=== PATIENT | female | born 1980 | race African-American/Black ===

== ENCOUNTER 2023-11-03 18:00 | Emergency (ER) | payer OTHER ==
[2023-11-03 18:08] VITALS: BP 132/75; PULSE 75; RESP 18; TEMP 98; BMI 38.5
[2023-11-03] MEDS ORDERED: ACETAMINOPHEN INJECTION 100 ML IVPB ONE (19:31)
[2023-11-03 20:37] LABS: BASO % 0.8 % (0-2.0); EOS % 4.5 % (0-4.5); HEMATOCRIT 30.4 % (32.4-45.2); LYMPH % 24.2 % (8-40); MCH 29.8 pg (25.7-33.7); MEAN CELL VOLUME 90.3 fl (80-96); MONO % 8.1 % (3.8-10.2); NEUT % 62.4 % (42.8-82.8); PLATELET COUNT 434 10^3/uL (134-434); RBC 3.36 M/mm3 (3.60-5.2); RDW 15.5 % (11.6-15.6); WHITE BLOOD COUNT 8.6 K/mm3 (4.0-10.0)
[2023-11-03] MEDS: ACETAMINOPHEN 1000 MG/100 ML BAG IVPB ONE (20:49)
[2023-11-03 20:57] LABS: POTASSIUM 3.8 mmol/L (3.5-5.1)
[2023-11-03 20:59] LABS: ALBUMIN 3.1 g/dl (3.4-5.0); BLOOD UREA NITROGEN 5.2 mg/dL (7-18); CALCIUM 8.9 mg/dL (8.5-10.1)
[2023-11-03 21:03] LABS: CREATININE 0.7 mg/dL (0.55-1.3)
[2023-11-03 21:04] LABS: BILIRUBIN,TOTAL 0.4 mg/dL (0.2-1); TOT PROT 7.1 g/dl (6.4-8.2)
[2023-11-03 21:07] LABS: BASO % 0.7 % (0-2.0); EOS % 4.1 % (0-4.5); HEMATOCRIT 33.1 % (32.4-45.2); HEMOGLOBIN 11.1 GM/dL (10.7-15.3); LYMPH % 21.3 % (8-40); MCH 30.1 pg (25.7-33.7); MCHC 33.4 g/dl (32.0-36.0); MEAN PLT VOLUME 7.1 fl (7.5-11.1); MONO % 8.1 % (3.8-10.2); NEUT % 65.8 % (42.8-82.8); PLATELET COUNT 427 10^3/uL (134-434); RBC 3.68 M/mm3 (3.60-5.2); RDW 15.2 % (11.6-15.6); WHITE BLOOD COUNT 8.1 K/mm3 (4.0-10.0)
[2023-11-03 21:11] LABS: EPI CELLS 4 /uL (0-25.1); HYALINE CASTS 0 /uL (0-3.1); PH,URINE 5.5 (5.0-8.0); URINE APPEARANCE CLEAR; URINE BACTERIA 62 /uL (0-1359); URINE BILIRUBIN NEGATIVE (NEGATIVE); URINE COLOR YELLOW; URINE GLUCOSE (UA) NEGATIVE (NEGATIVE); URINE KETONE TRACE (NEGATIVE); URINE LEUK ESTERASE NEGATIVE (NEGATIVE); URINE NITRITE NEGATIVE (NEGATIVE); URINE PROTEIN 1+ (NEGATIVE); URINE RBC 72 /uL (0-23.9); URINE UROBILINOGEN 0.2 mg/dL (0.2-1.0); URINE WBC 5 /uL (0-25.8)
[2023-11-03 21:17] LABS: INR 1.28 (0.83-1.09); PROTHROMBIN TIME (PATIENT) 14.4 SEC (9.7-13.0)
[2023-11-03 21:20] LABS: ACTIVATED PTT 39.9 SECONDS (25.2-36.5)
[2023-11-03 21:27] LABS: POTASSIUM 3.7 mmol/L (3.5-5.1)
[2023-11-03 21:29] LABS: BLOOD UREA NITROGEN 5.4 mg/dL (7-18); CALCIUM 9.3 mg/dL (8.5-10.1)
[2023-11-03 21:30] LABS: ALBUMIN 3.3 g/dl (3.4-5.0)
[2023-11-03 21:33] LABS: CREATININE 0.7 mg/dL (0.55-1.3)
[2023-11-03 21:34] LABS: BILIRUBIN,TOTAL 0.4 mg/dL (0.2-1); TOT PROT 7.6 g/dl (6.4-8.2)
[2023-11-03 21:36] LABS: HCG,QUALITATIVE URINE Negative
[2023-11-03] MEDS ORDERED: DEXAMETHASONE SOD PHOSPHATE 4 MG/1 ML VIAL ONE (22:46)
[2023-11-03] MEDS ORDERED: AMOXICILLIN 250 MG CAPSULE ONE (22:51)
[2023-11-03] MEDS: DEXAMETHASONE SOD PHOSPHATE 4 MG/1 ML VIAL IM ONE (22:56)
[2023-11-03] MEDS: SODIUM CHLORIDE 0.9% 500 ML INFUS.BAG IV ONE (22:56)
[2023-11-03] MEDS: AMOXICILLIN 500 MG CAPSULE (FP) PO ONE (22:58)
== END 2023-11-04 00:03 | disposition home or self-care (01) ==
LOC: JER 18:00
PROC: 3E030NZ Introduction of Analgesics, Hypnotics, Sedatives into Peripheral Vein, Open Approach (ICD-10-PCS; principal; 2023-11-03)
PROC: 3E023GC Introduction of Other Therapeutic Substance into Muscle, Percutaneous Approach (ICD-10-PCS; 2023-11-03)
DX: J36 Peritonsillar abscess (principal); J02.9 Acute pharyngitis, unspecified; R50.9 Fever, unspecified
CPT/HCPCS: 36415; 70491-TC; 80053; 81003; 84703; 85025; 85610; 85730; 87086; 99285-25; J0131; Q9967